=== PATIENT | female | born 1955 | race Caucasian/White ===

== ENCOUNTER 2017-04-15 19:08 | Emergency (ER) | payer OTHER ==
[~2017-04-15] VITALS: Ht 170.2 cm; Wt 104.5 kg
[~2017-04-15 19:08] MED LIST: Z.0.NO CURRENT MEDS
[2017-04-15 19:12] VITALS: BP 176/97; PULSE 88; RESP 18; TEMP 98.7; O2SAT 98
--- NOTE | 2017-04-15 19:49 | PD ---
HPI . Fall Chief Complaint: Fall Time Seen by Provider: 19:23 Travel History International Travel<30 days: No Contact w/Intl Traveler<30days: No Traveled to known affect area: No History of Present Illness HPI 61-year-old female patient presents to the emergency department via EMS for evaluation after she slipped on water in the kitchen and fell onto her right knee. Patient states the right knee pain is only injury that she sustained during the fall. Patient is well-appearing and energetic. She is morbidly obese. She is making multiple phone calls to notify family and friends that she is in the emergency department. Patient denies any major medical history. Patient does not take any daily medication. Patient has no known allergies. The right leg is neurovascularly intact. There is no ecchymosis, erythema, obvious deformity or other signs of obvious trauma to the right knee. Patient has full range of motion in bilateral lower extremities. Patient denies hitting her head or losing consciousness during the fall. PFSH Past Medical History Diminished Hearing: No Hypertension: Yes Reproductive: Yes (endometriosis) Immunizations Current: No Tetanus Vaccination: < 5 Years Influenza Vaccination: No ?: Not Menopausal: Yes Past Surgical History Gynecologic Surgery: Yes (laproscopy) Social History Alcohol Use: No Tobacco Use: No Substance Use: Yes (POT) Allergies-Medications (Allergen,Severity, Reaction): Coded Allergies: No Known Allergies (Verified , 04/15/17) Reported Meds & Prescriptions Reported Meds & Active Scripts Active No Active Prescriptions or Reported Medications Review of Systems Except as stated in HPI: all other systems reviewed are Neg Physical Exam Narrative GENERAL: Well-nourished, well-developed, morbidly obese, pleasant 61-year-old female patient in no acute distress. Nontoxic appearing. SKIN: Focused skin assessment warm/dry. HEAD: Normocephalic. Atraumatic. NEUROLOGICAL: Awake and alert. Cranial nerves II through XII intact. Motor and sensory grossly within normal limits. Five out of 5 muscle strength in all muscle groups. Normal speech. EYES: No scleral icterus. No injection or drainage. NECK: Supple, trachea midline. No JVD or lymphadenopathy. CARDIOVASCULAR: Regular rate and rhythm without murmurs, gallops, or rubs. 2+ pedal pulses bilaterally. RESPIRATORY: Breath sounds equal bilaterally. No accessory muscle use. GASTROINTESTINAL: Abdomen soft, non-tender, nondistended. MUSCULOSKELETAL: Right knee tenderness to palpation. Full range of motion noted. No edema, ecchymosis, erythema noted. BACK: Nontender without obvious deformity. No CVA tenderness. Data Data Last Documented VS Vital Signs Date Time Temp Pulse Resp B/P (MAP) Pulse Ox O2 Delivery O2 Flow Rate FiO2 04/15/17 19:12 98.7 88 18 176/97 (123) 98 Orders Orders Knee, Complete (4vws) (04/15/17 19:35) Ice/Cold Pack (04/15/17 19:35) MDM Medical Decision Making Medical Screen Exam Complete: Yes Emergency Medical Condition: Yes Differential Diagnosis Differential diagnoses include but not limited to right knee sprain, right knee contusion, right patellar fracture Narrative Course 61-year-old female presents to emergency room for evaluation of right knee pain after she slipped and fell on it at home tonight. X-ray of the right knee ordered and pending. Ice applied to the right knee. Patient states she does not need anything for pain at this time since "it doesn't hurt that bad". X- ray of the right knee shows no acute abnormality. Right knee will be Brendan wrapped. Patient will be discharged home with instructions for rice therapy to right knee and instructions follow-up with primary care. Last Impressions Knee X-Ray 04/15/171934 Signed Impressions: Service Date/Time: , April 15, 2017 20:11 - CONCLUSION: No acute bony injury. Marked to severe degenerative change at lateral joint compartment Rod Robert MD Diagnosis Primary Impression: Knee contusion Qualified Codes: S80.01XA - Contusion of right knee, initial encounter Referrals: Primary Care Physician Patient Instructions: Fall Prevention for Children (GEN), General Instructions , Knee Pain (GEN) Additional Instructions: Please return to emergency department if your symptoms return or worsen. Follow up with your primary care provider. Rice therapy to right knee. Rest, ice, compress with Brendan wrap with activity, elevate right knee when resting. Use [id number] Tylenol or ibuprofen as needed for pain. Scripts No Active Prescriptions or Reported Meds Disposition: 01 DISCHARGE HOME Condition: Stable Raegan Ray MAXINE Apr 15, 2017 19:48
--- NOTE | 2017-04-15 20:33 | RADRPT ---
EXAM DATE/TIME: 04/15/2017 20:11 [facility] COMPARISON: No previous studies available for comparison. INDICATIONS : Fall on right knee. MEDICAL HISTORY : None. SURGICAL HISTORY : None. ENCOUNTER: Initial ACUITY: 1 day PAIN SCORE: 8/10 LOCATION: Right Knee FINDINGS: Four view examination of the right knee demonstrates no evidence of fracture or dislocation. Bony mi neralization is normal. The articular surfaces are intact. The suprapatellar soft tissues have a no rmal configuration. There is lateral joint compartment degenerative change with marked narrowing, min imal spurring and subchondral sclerosis of the lateral tibial plateau. CONCLUSION: No acute bony injury. Marked to severe degenerative change at lateral joint compartment Rod Robert MD on April 15, 2017 at 20:31 Board Certified Radiologist. This report was verified electronically.
== END 2017-04-15 21:05 | disposition home or self-care (01) ==
LOC: PHEFT 19:08
DX: S80.01XA Contusion of right knee, initial encounter (principal); W01.0XXA Fall on same level from slipping, tripping and stumbling without subsequent striking against object, initial encounter; Y92.000 Kitchen of unspecified non-institutional (private) residence as the place of occurrence of the external cause
CPT/HCPCS: 73564; 99283

== ENCOUNTER 2017-09-23 18:03 | Emergency (ER) | payer OTHER ==
[2017-09-23 18:07] VITALS: BP 169/100; PULSE 107; RESP 18; TEMP 99.1; O2SAT 96
== END 2017-09-23 18:49 | disposition left against medical advice (07) ==
LOC: NED 18:03
DX: S99.912A Unspecified injury of left ankle, initial encounter (principal); X58.XXXA Exposure to other specified factors, initial encounter; Z53.21 Procedure and treatment not carried out due to patient leaving prior to being seen by health care provider
CPT/HCPCS: 99281

== ENCOUNTER 2017-09-23 21:12 | Emergency (ER) | payer SELFPAY ==
[~2017-09-23] VITALS: Ht 170.2 cm; Wt 106.5 kg
[2017-09-23 22:54] VITALS: BP 164/92; PULSE 106; RESP 16; TEMP 99.1; O2SAT 96
--- NOTE | 2017-09-23 23:17 | PD ---
HPI Chief Complaint: Injury Time Seen by Provider: 23:03 Travel History International Travel<30 days: No Contact w/Intl Traveler<30days: No Traveled to known affect area: No History of Present Illness HPI Is a 61-year-old woman who presents to the emergency department complaining of left leg pain and swelling. States she normally walks without assistance. She has a history of a left ankle injury that bothers her from time to time. She has had some swelling to the left ankle intermittently in the past. Over the past day or so she has been on her legs more, using her of her scooter to get around, and over the past day is noticed worsening swelling about the ankle and the leg. Some pain. Worsening pain with walking and weightbearing. She has not had swelling this bad in the past. Denies any history of DVT or PE. Denies any significant medical history. States she normally is very inactive, she has been on her feet a lot more both in the chair and walking over the past couple days because her has been in the ICU. Denies any other recent illness or injury. No chest pain or trouble breathing. No other complaints. History Past Medical History Medical History: Denies Significant Hx Menopausal: Yes Social History Alcohol Use: No Tobacco Use: No Allergies-Medications (Allergen,Severity, Reaction): Coded Allergies: No Known Allergies (Verified , 04/15/17) Reported Meds & Prescriptions Reported Meds & Active Scripts Active No Active Prescriptions or Reported Medications Review of Systems Except as stated in HPI: all other systems reviewed are Neg Physical Exam Narrative GENERAL: Obese 7-year-old woman, no acute distress. SKIN: Focused skin assessment warm/dry. HEAD: Atraumatic. Normocephalic. EYES: Pupils equal and round. No scleral icterus. No injection or drainage. ENT: No nasal bleeding or discharge. Mucous membranes pink and moist. NECK: Trachea midline. No JVD. CARDIOVASCULAR: Regular rate and rhythm. No murmur appreciated. RESPIRATORY: No respiratory distress. Some mild diffuse wheezing in the posterior lung tompkins. GASTROINTESTINAL: Abdomen soft, non-tender, nondistended. Hepatic and splenic margins not palpable. MUSCULOSKELETAL: No obvious deformities. Significant asymmetry with swelling and edema in the left lower extremity, distal calf, and mostly about the ankle and foot. Foot is warm and well-perfused. Pulses little bit difficult to palpate. Good capillary refill. NEUROLOGICAL: Awake and alert. No obvious cranial nerve deficits. Motor grossly within normal limits. Normal speech. Data Data Last Documented VS Vital Signs Date Time Temp Pulse Resp B/P (MAP) Pulse Ox O2 Delivery O2 Flow Rate FiO2 09/23/17 22:54 99.1 106 16 164/92 (116) 96 Orders Orders Ankle, Complete ([id number]) (09/23/17 ) Us Leg Venous Doppler (09/23/17 ) [employer] Request For Service (09/24/17 00:41) [facility] Medical Decision Making Medical Screen Exam Complete: Yes Emergency Medical Condition: Yes Interpretation(s) Ultrasound negative for DVT Ankle x-ray: Mildly comminuted minimally displaced distal shaft fracture of the left fibula. Differential Diagnosis DVT, inflammatory arthritis, lymphedema, previous injury, other Narrative Course Medical decision making INITIAL: Is a 7-year-old woman presents emergency department with asymmetric lower extremity swelling and edema and pain. I think this is probably dependent edema related to her previous injury. Will check an ultrasound rule out DVT. Will check x-ray to rule out occult injury. FINAL: X-ray reveals distal fibular fracture. Recommend walking boot. Weightbearing as tolerated. Diagnosis Primary Impression: Left fibular fracture Additional Instructions: Wear splint for the next 4 weeks. Weight-bear as tolerated. Follow-up with her primary doctor in the next 1-2 weeks. Return to the emergency department for any new or worsening symptoms. Use acetaminophen or ibuprofen as needed for pain. Med/Other Pt SpecificInfo: No Change to Meds Scripts No Active Prescriptions or Reported Meds Disposition: 01 DISCHARGE HOME Condition: Stable Davey Villa MD Sep 23, 2017 23:17
--- NOTE | 2017-09-23 23:36 | RADRPT ---
EXAM DATE/TIME: 09/23/2017 23:20 [facility] COMPARISON: No previous studies available for comparison. INDICATIONS : Ankle pain. Previous injured ankle getting worse the past 2 weeks. MEDICAL HISTORY : None. SURGICAL HISTORY : None. ENCOUNTER: Initial ACUITY: 2 weeks PAIN SCORE: 10/10 LOCATION: Left Distal fibula. FINDINGS: There is a mildly comminuted but essentially nondisplaced fracture in the distal shaft region of the left fibula. Distal tibia is intact. There are no subluxations. There is diffuse soft tissue swelling and subcutaneous edema. CONCLUSION: Mildly comminuted minimally displaced distal shaft fracture of the left fibula. Reece Junior MD on September 23, 2017 at 23:33 Board Certified Radiologist. This report was verified electronically.
--- NOTE | 2017-09-24 00:14 | RADRPT ---
EXAM DATE/TIME: 09/23/2017 23:46 [facility] COMPARISON: No previous studies available for comparison. INDICATIONS : Left leg pain. MEDICAL HISTORY : Hypertension. Endometriosis. SURGICAL HISTORY : Laproscopy for endometriosis. ENCOUNTER: Initial ACUITY: 3 days PAIN SCORE: 6/10 LOCATION: Left leg. TECHNIQUE: Venous ultrasound of the leg was performed from the inguinal ligament to the proximal calf. Real-shelby e, color Doppler and spectral tracing, compression and augmentation techniques were used. FINDINGS: There is normal compressibility of the deep venous system from the inguinal region to the proximal ca lf. No echogenic clot is seen in the lumen of the common femoral, femoral, popliteal, and posterior tibial veins. There is a normal response of the venous system to proximal and distal augmentation an d respiration. CONCLUSION: Negative study. No venous thrombosis of the left lower extremity. Reece Junior MD on September 24, 2017 at 0:12 Board Certified Radiologist. This report was verified electronically.
== END 2017-09-24 01:44 | disposition home or self-care (01) ==
LOC: NEPE 21:12
DX: S82.832A Other fracture of upper and lower end of left fibula, initial encounter for closed fracture (principal); X58.XXXA Exposure to other specified factors, initial encounter
CPT/HCPCS: 73610; 93971; 99284; L2114

== ENCOUNTER 2017-09-24 22:08 | Emergency (ER) | payer SELFPAY ==
[~2017-09-24] VITALS: Ht 170.2 cm; Wt 106.5 kg
[2017-09-24 23:08] VITALS: BP 184/86; PULSE 108; RESP 24; TEMP 98.8; O2SAT 95
--- NOTE | 2017-09-24 23:23 | PD ---
HPI Chief Complaint: ENT Complaint Time Seen by Provider: 23:14 Travel History International Travel<30 days: No Contact w/Intl Traveler<30days: No Traveled to known affect area: No History of Present Illness HPI 61-year-old female presents for evaluation of sore throat and hoarse voice. Symptoms started 2 days ago. It hurts to swallow. She reports a dry nonproductive cough as well. Denies fevers, chills, rash, recent travel, nausea or vomiting. She reports that her is admitted currently with a COPD exacerbation. She has no other complaints at this time. [facility] Past Medical History Medical History: Denies Significant Hx Diminished Hearing: No Hypertension: Yes Reproductive: Yes (endometriosis) Immunizations Current: No Tetanus Vaccination: Unknown Influenza Vaccination: No ?: Not Menopausal: Yes Past Surgical History Surgical History: No Previous Surgery Gynecologic Surgery: Yes (laproscopy) Social History Alcohol Use: No Tobacco Use: No Substance Use: No Allergies-Medications (Allergen,Severity, Reaction): Coded Allergies: No Known Allergies (Verified , 04/15/17) Reported Meds & Prescriptions Reported Meds & Active Scripts Active No Active Prescriptions or Reported Medications Review of Systems Except as stated in HPI: all other systems reviewed are Neg Physical Exam Narrative GENERAL: Well-developed well-nourished female no acute distress SKIN: Warm and dry. HEAD: Atraumatic. Normocephalic. EYES: Pupils equal and round. No scleral icterus. No injection or drainage. ENT: No nasal bleeding or discharge. Mucous membranes pink and moist. Voice is mildly hoarse. There is mild oral pharyngeal erythema. No exudate. No stridor or drooling. NECK: Trachea midline. No JVD. No lymphadenopathy. CARDIOVASCULAR: Regular rate and rhythm. No murmur appreciated. RESPIRATORY: No accessory muscle use. Clear to auscultation. Breath sounds equal bilaterally. Data Data Last Documented VS Vital Signs Date Time Temp Pulse Resp B/P (MAP) Pulse Ox O2 Delivery O2 Flow Rate FiO2 09/24/17 23:08 98.8 108 24 184/86 (118) 95 Room Air Orders Orders Group A Rapid Strep Screen (09/24/17 23:21) Strep Culture (Group A) (09/24/17 23:30) Ed Discharge Order (09/25/17 00:38) MDM Medical Decision Making Medical Screen Exam Complete: Yes Emergency Medical Condition: Yes Medical Record Reviewed: Yes Differential Diagnosis Pharyngitis, laryngitis, tonsillitis, peritonsillar abscess, infectious mononucleosis, herpangina, epiglottitis, retropharyngeal abscess Narrative Course 61-year-old female presents with 2 days of hoarse voice and sore throat. Physical examination is benign. A rapid strep screen was performed and is negative. She appears to have a viral pharyngitis and laryngitis. She is stable for discharge. Diagnosis Primary Impression: Pharyngitis Additional Impression: Laryngitis Additional Instructions: Stay well-hydrated and well-nourished. Vocal rest. Follow-up with primary care physician as needed. Return for any emergent medical conditions. Med/Other Pt SpecificInfo: No Change to Meds Scripts No Active Prescriptions or Reported Meds Disposition: 01 DISCHARGE HOME Condition: Stable David Cleary Sep 24, 2017 23:23
== END 2017-09-25 00:50 | disposition home or self-care (01) ==
LOC: NEPD 22:08
DX: J02.9 Acute pharyngitis, unspecified (principal); J04.0 Acute laryngitis
CPT/HCPCS: 87081; 87880; 99283